=== PATIENT | male | born 1970 | race Caucasian/White ===

== ENCOUNTER 2024-09-18 10:04 | Day surgery (SDC) | payer OTHER ==
[~2024-09-18] VITALS: Ht 172.7 cm; Wt 104.6 kg
[~2024-09-18 10:04] MED LIST: NS 500 ML IV ONE
[2024-09-18] MEDS ORDERED: NS 500 ML IV ONE (10:21)
[2024-09-18] MEDS ORDERED: ESOM20 PO (10:26)
[2024-09-18] MEDS ORDERED: ALLO100 PO (10:26)
[2024-09-18] MEDS ORDERED: INDO50 PO (10:27)
[2024-09-18] MEDS ORDERED: Lisinopril-Hct1 EAC4 PO (10:27)
[2024-09-18] MEDS ORDERED: PANT40 PO (10:27)
[2024-09-18] MEDS ORDERED: HYDHCL25 PO (10:27)
[2024-09-18] MEDS ORDERED: ZOCOR20 MG PO (10:28)
[2024-09-18] MEDS ORDERED: SERT100 PO (10:28)
[2024-09-18] MEDS ORDERED: propofoL 40 ML IV ONE (11:46)
[2024-09-18] MEDS ORDERED: propofoL 20 ML IV ONE ×2 (12:23→12:29)
== END 2024-09-18 12:51 | disposition home or self-care (01) ==
LOC: ORSCSDS 10:04
PROVIDERS: Orthopaedic Surgery
PROC: 0LB60ZZ Excision of Left Lower Arm and Wrist Tendon, Open Approach (ICD-10-PCS; principal; 2024-09-18 12:00)
DX: M67.432 Ganglion, left wrist (principal); F41.9 Anxiety disorder, unspecified; F32.A Depression, unspecified; K21.9 Gastro-esophageal reflux disease without esophagitis; E78.5 Hyperlipidemia, unspecified; I10 Essential (primary) hypertension; G40.909 Epilepsy, unspecified, not intractable, without status epilepticus; G47.33 Obstructive sleep apnea (adult) (pediatric); M10.9 Gout, unspecified; Z87.891 Personal history of nicotine dependence; Z79.899 Other long term (current) drug therapy
CPT/HCPCS: 88304; J2704; J7040

== ENCOUNTER 2025-02-15 10:01 | Day surgery (SDC) | payer OTHER ==
[~2025-02-15] VITALS: Ht 172.7 cm; Wt 100.0 kg
[~2025-02-15 10:01] MED LIST changes: +ALLO100 PO; +Balanced Salt Epinephrine Irrigation Solution 500 mL IR SCH; +ESOM20 PO; +HYDHCL25 PO; +INDO50 PO; +Lidocaine HCl/Pf 1% 5 ML VIAL XX SCH; +Lisinopril-Hct1 EAC4 PO; +Moxifloxacin HCL 0.5 MG/0.1 ML 0.4MLSYR RIGHTEYE SCH; -NS 500 ML IV ONE; +PANT40 PO; +PHENYLEPHRINE\\TROPICAMIDE\\TETRACAINE OPHTHALMIC DILATING SOLN RIGHTEYE PRN; +Povidone-Iodine 450 DROP/30 ML Solution ONE; +Povidone-Iodine 450 DROP/30 ML Solution RIGHTEYE SCH; +SERT100 PO; +Tetracaine HCl/Pf 0.5% Opth Soln 4 ml ONE; +Triamcinolone Inj Susp 40 MG / ML 1ML Vial INJ SCH; +Triamcinolone Inj Susp 40 MG / ML 1ML Vial ONE; +ZOCOR20 MG PO
[2025-02-15] MEDS ORDERED: TIZA4 (10:49)
[2025-02-15] MEDS ORDERED: NS 500 ML IV ONE (11:00)
[2025-02-15] MEDS ORDERED: Midazolam HCl 1MG / ML 2ML Vial ONE (11:30)
[2025-02-15] MEDS ORDERED: FentaNYL Citrate 50 MCG/ML 2 ML Injection ONE (11:32)
== END 2025-02-15 12:30 | disposition home or self-care (01) ==
LOC: ORSCSDS 10:01
PROVIDERS: Ophthalmology
PROC: 08RJ3JZ Replacement of Right Lens with Synthetic Substitute, Percutaneous Approach (ICD-10-PCS; principal; 2025-02-15 12:00)
DX: H25.811 Combined forms of age-related cataract, right eye (principal); H52.201 Unspecified astigmatism, right eye; E78.5 Hyperlipidemia, unspecified; I10 Essential (primary) hypertension; F32.A Depression, unspecified; F41.9 Anxiety disorder, unspecified; K21.9 Gastro-esophageal reflux disease without esophagitis; G40.909 Epilepsy, unspecified, not intractable, without status epilepticus; Z79.899 Other long term (current) drug therapy
CPT/HCPCS: J2250; J3010; J3301; V2632